=== PATIENT | female | born 1960 | race Caucasian/White ===

== ENCOUNTER 2024-03-07 10:06 | Inpatient (IN) ==
[2024-03-07] MEDS: KETOROLAC 15 MG/ML VIAL IM ONE (10:30)
[2024-03-07] MEDS: METHOCARBAMOL 750 MG TABLET PO ONE (10:31)
[2024-03-07] MEDS: HYDROcodone/APAP 5/325MG TABLET PO ONE (11:42)
[2024-03-07 13:34] LABS: Basophils # (Auto) 0.06 K/mcL (0.00-0.30); Eosinophils # (Auto) 0.26 K/mcL (0.00-0.70); Eosinophils % (Auto) 4.2 % (0.0-7.0); Hematocrit 38.5 % (34.1-44.9); Hemoglobin 12.9 g/dL (11.2-15.7); Lymphocytes # (Auto) 1.56 K/mcL (1.50-4.80); Lymphocytes % (Auto) 25.2 % (15.5-49.0); Mean Cell Volume 97.2 fL (80.0-100.0); Mean Corpuscular HGB Conc 33.5 g/dL (31.0-36.0); Mean Platelet Volume 10.3 fL (8.8-12.5); Monocytes # (Auto) 0.69 K/mcL (0.10-0.90); Monocytes % (Auto) 11.1 % (1.0-12.0); Neutrophils % (Auto) 58.5 % (38.0-78.0); Platelet Count 104 K/mcL (140-440); RBC 3.96 M/mcL (3.59-5.38); Red Cell Distribution Width 12.8 % (11.5-14.5); WBC 6.2 K/mcL (4.5-11.0)
[2024-03-07 13:59] LABS: ALT/SGPT 15 U/L (<40); AST/SGOT 38 U/L (<32); Albumin 3.3 gm/dL (3.2-5.2); Albumin/Globulin Ratio 1.4 (1.0-2.3); Alkaline Phosphatase 128 U/L (39-117); Bilirubin,Total 1.6 mg/dL (0.1-1.0); Blood Urea Nitrogen 11 mg/dL (8-23); Calcium 9.2 mg/dL (8.6-10.4); Carbon Dioxide 21 mmol/L (22-30); Chloride 108 mmol/L (96-108); Globulin 2.3 gm/dL (2.2-3.7); Glomerular Filtration Rate 96; Glucose 82 mg/dL (70-105); Potassium 4.4 mmol/L (3.3-5.1); Sodium 139 mmol/L (133-145)
[2024-03-07 14:14] LABS: Erythrocyte Sedimentation Rate 5 mm/hr (0-30)
[2024-03-07] MEDS: DEXAMETHASONE 10 MG/ML VIAL IV ONE (14:40)
[2024-03-07] MEDS: RIFAXIMIN 550 MG TABLET PO ONE (18:56)
[2024-03-07] MEDS: LACTULOSE 20 GM/30 ML ORAL.SOL PO ONE (18:56)
[2024-03-07] MEDS ORDERED: IPRATROPIUM/ALBUTEROL 3 ML AMPUL.NEB NEB PRN (21:45)
[2024-03-07] MEDS ORDERED: MAG HYDROX/AL HYDROX/SIMETH 30 ML ORAL.SUSP PO PRN (21:45)
[2024-03-07] MEDS ORDERED: PROMETHAZINE 25 MG TABLET PO PRN (21:45)
[2024-03-07] MEDS: 0.9 % SODIUM CHLORIDE 10 ML SYRINGE IV SCH (22:06)
[2024-03-07] MEDS: SENNOSIDES 1 TABLET PO SCH (22:17)
[2024-03-07] MEDS: HEPARIN 5,000 UNIT/ML VIAL SQ SCH (22:19)
[2024-03-08 06:24] LABS: ALT/SGPT 14 U/L (<40); AST/SGOT 35 U/L (<32); Albumin 3.3 gm/dL (3.2-5.2); Albumin/Globulin Ratio 1.4 (1.0-2.3); Alkaline Phosphatase 122 U/L (39-117); Basophils # (Auto) 0 K/mcL (0.00-0.30); Basophils % (Auto) 0 % (0.0-2.0); Bilirubin,Total 1.3 mg/dL (0.1-1.0); Blood Urea Nitrogen 20 mg/dL (8-23); Calcium 9.5 mg/dL (8.6-10.4); Carbon Dioxide 20 mmol/L (22-30); Chloride 107 mmol/L (96-108); Eosinophils # (Auto) 0 K/mcL (0.00-0.70); Eosinophils % (Auto) 0 % (0.0-7.0); Globulin 2.3 gm/dL (2.2-3.7); Glomerular Filtration Rate 78; Glucose 126 mg/dL (70-105); Hematocrit 37.1 % (34.1-44.9); Hemoglobin 12.6 g/dL (11.2-15.7); Lymphocytes # (Auto) 0.86 K/mcL (1.50-4.80); Lymphocytes % (Auto) 17.4 % (15.5-49.0); Mean Cell Volume 96.4 fL (80.0-100.0); Mean Platelet Volume 10.5 fL (8.8-12.5); Monocytes # (Auto) 0.17 K/mcL (0.10-0.90); Monocytes % (Auto) 3.4 % (1.0-12.0); Platelet Count 92 K/mcL (140-440); Potassium 4.5 mmol/L (3.3-5.1); RBC 3.85 M/mcL (3.59-5.38); Red Cell Distribution Width 12.4 % (11.5-14.5); Sodium 136 mmol/L (133-145); WBC 4.9 K/mcL (4.5-11.0)
[2024-03-08] MEDS: PANTOPRAZOLE 40 MG TABLET PO SCH (09:45)
[2024-03-08] MEDS: HYDROmorphone 1 MG/ML SYRINGE IV PRN (11:24)
[2024-03-08] MEDS: fentaNYL 25 MCG PATCH TOPICAL SCH (13:52)
[2024-03-08] MEDS: LACTULOSE 20 GM/30 ML ORAL.SOL PO PRN (13:52)
[2024-03-08] MEDS: rOPINIRole 1 MG TABLET PO SCH ×2 (20:08→20:54)
[2024-03-08] MEDS: RIFAXIMIN 550 MG TABLET PO SCH (20:09)
[2024-03-08] MEDS: MIRTAZAPINE 15 MG TABLET PO SCH (20:09)
[2024-03-08] MEDS: FUROSEMIDE 40 MG TABLET PO SCH (20:10)
[2024-03-08] MEDS: MELATONIN 3 MG TABLET PO SCH (20:10)
[2024-03-08] MEDS: KETOROLAC 10 MG TABLET PO PRN (20:41)
[2024-03-09] MEDS: MAGNESIUM HYDROXIDE 30 ML ORAL.SUSP PO PRN (05:18)
[2024-03-09 06:30] LABS: Basophils # (Auto) 0.01 K/mcL (0.00-0.30); Basophils % (Auto) 0.1 % (0.0-2.0); Eosinophils # (Auto) 0.08 K/mcL (0.00-0.70); Eosinophils % (Auto) 0.7 % (0.0-7.0); Hematocrit 37.1 % (34.1-44.9); Hemoglobin 12.8 g/dL (11.2-15.7); Lymphocytes # (Auto) 1.46 K/mcL (1.50-4.80); Lymphocytes % (Auto) 12.7 % (15.5-49.0); Mean Cell Volume 97.6 fL (80.0-100.0); Mean Corpuscular HGB Conc 34.5 g/dL (31.0-36.0); Mean Platelet Volume 11.1 fL (8.8-12.5); Monocytes # (Auto) 1.22 K/mcL (0.10-0.90); Monocytes % (Auto) 10.6 % (1.0-12.0); Neutrophils % (Auto) 75.6 % (38.0-78.0); Platelet Count 108 K/mcL (140-440); Red Cell Distribution Width 12.7 % (11.5-14.5); WBC 11.5 K/mcL (4.5-11.0)
[2024-03-09 06:47] LABS: ALT/SGPT 25 U/L (<40); AST/SGOT 65 U/L (<32); Albumin 3.3 gm/dL (3.2-5.2); Albumin/Globulin Ratio 1.3 (1.0-2.3); Alkaline Phosphatase 127 U/L (39-117); Bilirubin,Total 1.5 mg/dL (0.1-1.0); Blood Urea Nitrogen 33 mg/dL (8-23); Calcium 9.2 mg/dL (8.6-10.4); Carbon Dioxide 21 mmol/L (22-30); Chloride 105 mmol/L (96-108); Globulin 2.6 gm/dL (2.2-3.7); Glomerular Filtration Rate 68; Glucose 99 mg/dL (70-105); Potassium 4.8 mmol/L (3.3-5.1); Sodium 135 mmol/L (133-145)
[2024-03-09] MEDS ORDERED: VIT C S CHERRY CELERY GRAPE SD PO SCH (09:00)
[2024-03-09] MEDS: FOLIC ACID 1 MG TABLET PO SCH (09:50)
[2024-03-09] MEDS: FUROSEMIDE 40 MG TABLET PO SCH (09:51)
[2024-03-09] MEDS: SPIRONOLACTONE 25 MG TABLET PO SCH (09:51)
[2024-03-09] MEDS ORDERED: BUPIVACAINE PF 0.25% 10 ML VIAL IJ ONE (10:00)
[2024-03-09] MEDS ORDERED: DEXAMETHASONE 10 MG/ML VIAL ONE (10:00)
[2024-03-09] MEDS: HYDROcodone/APAP 10/325MG TABLET PO PRN (12:11)
[2024-03-10 06:17] LABS: Basophils # (Auto) 0 K/mcL (0.00-0.30); Basophils % (Auto) 0 % (0.0-2.0); Eosinophils # (Auto) 0 K/mcL (0.00-0.70); Eosinophils % (Auto) 0 % (0.0-7.0); Hematocrit 38.7 % (34.1-44.9); Hemoglobin 13.1 g/dL (11.2-15.7); Lymphocytes # (Auto) 1.06 K/mcL (1.50-4.80); Lymphocytes % (Auto) 12.7 % (15.5-49.0); Mean Cell Volume 98.2 fL (80.0-100.0); Mean Corpuscular HGB Conc 33.9 g/dL (31.0-36.0); Monocytes # (Auto) 0.51 K/mcL (0.10-0.90); Monocytes % (Auto) 6.1 % (1.0-12.0); Neutrophils % (Auto) 80.7 % (38.0-78.0); Platelet Count 101 K/mcL (140-440); RBC 3.94 M/mcL (3.59-5.38); Red Cell Distribution Width 12.4 % (11.5-14.5); WBC 8.3 K/mcL (4.5-11.0)
[2024-03-10 06:33] LABS: ALT/SGPT 51 U/L (<40); AST/SGOT 104 U/L (<32); Albumin 3.3 gm/dL (3.2-5.2); Albumin/Globulin Ratio 1.2 (1.0-2.3); Alkaline Phosphatase 141 U/L (39-117); Bilirubin,Total 1.1 mg/dL (0.1-1.0); Blood Urea Nitrogen 30 mg/dL (8-23); Carbon Dioxide 22 mmol/L (22-30); Chloride 106 mmol/L (96-108); Globulin 2.8 gm/dL (2.2-3.7); Glomerular Filtration Rate 92; Glucose 131 mg/dL (70-105); Potassium 4.2 mmol/L (3.3-5.1); Sodium 139 mmol/L (133-145)
[2024-03-11] MEDS: ALPRAZolam 0.5 MG TABLET PO PRN (04:54)
[2024-03-11 06:13] LABS: Basophils # (Auto) 0.01 K/mcL (0.00-0.30); Basophils % (Auto) 0.1 % (0.0-2.0); Eosinophils # (Auto) 0.02 K/mcL (0.00-0.70); Eosinophils % (Auto) 0.2 % (0.0-7.0); Hematocrit 35.4 % (34.1-44.9); Hemoglobin 12.1 g/dL (11.2-15.7); Lymphocytes # (Auto) 1.45 K/mcL (1.50-4.80); Lymphocytes % (Auto) 14.3 % (15.5-49.0); Mean Cell Volume 98.1 fL (80.0-100.0); Mean Corpuscular HGB Conc 34.2 g/dL (31.0-36.0); Mean Platelet Volume 11.6 fL (8.8-12.5); Monocytes # (Auto) 1.52 K/mcL (0.10-0.90); Neutrophils % (Auto) 69.7 % (38.0-78.0); Platelet Count 92 K/mcL (140-440); RBC 3.61 M/mcL (3.59-5.38); Red Cell Distribution Width 12.6 % (11.5-14.5); WBC 10.2 K/mcL (4.5-11.0)
[2024-03-11 06:25] LABS: ALT/SGPT 47 U/L (<40); AST/SGOT 79 U/L (<32); Albumin/Globulin Ratio 1.2 (1.0-2.3); Alkaline Phosphatase 127 U/L (39-117); Blood Urea Nitrogen 24 mg/dL (8-23); Calcium 8.5 mg/dL (8.6-10.4); Carbon Dioxide 26 mmol/L (22-30); Chloride 103 mmol/L (96-108); Globulin 2.5 gm/dL (2.2-3.7); Glomerular Filtration Rate 96; Glucose 101 mg/dL (70-105); Potassium 3.8 mmol/L (3.3-5.1); Sodium 137 mmol/L (133-145)
[2024-03-12] MEDS: ONDANSETRON 4 MG/2 ML VIAL IV PRN (02:28)
[2024-03-12 06:15] LABS: ALT/SGPT 40 U/L (<40); AST/SGOT 60 U/L (<32); Albumin 2.9 gm/dL (3.2-5.2); Albumin/Globulin Ratio 1.3 (1.0-2.3); Alkaline Phosphatase 126 U/L (39-117); Bilirubin,Direct 0.6 mg/dL (<0.3); Bilirubin,Total 1.4 mg/dL (0.1-1.0); Blood Urea Nitrogen 21 mg/dL (8-23); Calcium 8.4 mg/dL (8.6-10.4); Carbon Dioxide 28 mmol/L (22-30); Chloride 101 mmol/L (96-108); Globulin 2.3 gm/dL (2.2-3.7); Glomerular Filtration Rate 96; Glucose 99 mg/dL (70-105); Lactate Dehydrogenase 242 U/L (135-225); Phosphorous 2.3 mg/dL (2.5-4.5); Potassium 3.8 mmol/L (3.3-5.1); Sodium 137 mmol/L (133-145); Triglycerides 36 mg/dL (<150); Uric Acid 3.5 mg/dL (2.5-8.0)
[2024-03-12 06:25] LABS: Basophils # (Auto) 0.01 K/mcL (0.00-0.30); Basophils % (Auto) 0.1 % (0.0-2.0); Eosinophils % (Auto) 2.5 % (0.0-7.0); Hematocrit 37.3 % (34.1-44.9); Hemoglobin 12.7 g/dL (11.2-15.7); Lymphocytes # (Auto) 1.79 K/mcL (1.50-4.80); Lymphocytes % (Auto) 22.1 % (15.5-49.0); Mean Cell Volume 99.5 fL (80.0-100.0); Mean Platelet Volume 11.4 fL (8.8-12.5); Monocytes # (Auto) 1.32 K/mcL (0.10-0.90); Monocytes % (Auto) 16.3 % (1.0-12.0); Neutrophils % (Auto) 57.9 % (38.0-78.0); Platelet Count 92 K/mcL (140-440); RBC 3.75 M/mcL (3.59-5.38); Red Cell Distribution Width 12.7 % (11.5-14.5); WBC 8.1 K/mcL (4.5-11.0)
[2024-03-12] MEDS: LACTULOSE 20 GM/30 ML ORAL.SOL PO SCH ×2 (09:26→13:08)
[2024-03-12] MEDS: HEPARIN 5,000 UNIT/ML VIAL SQ SCH (10:42)
[2024-03-12] MEDS ORDERED: LACTULOSE 20 GM/30 ML ORAL.SOL PR PRN ×2 (13:02→13:13)
[2024-03-12] MEDS: LACTULOSE 20 GM/30 ML ORAL.SOL PO PRN (16:18)
[2024-03-12] MEDS: LACTULOSE 20 GM/30 ML ORAL.SOL PT SCH (16:55)
[2024-03-13] MEDS: ACETAMINOPHEN 650 MG/65 ML BAG IV PRN (07:27)
[2024-03-13] MEDS ORDERED: MAG HYDROX/AL HYDROX/SIMETH 30 ML ORAL.SUSP PO PRN (08:35)
[2024-03-13] MEDS ORDERED: MAGNESIUM HYDROXIDE 30 ML ORAL.SUSP PO PRN (08:35)
[2024-03-13] MEDS ORDERED: SPIRONOLACTONE 25 MG TABLET PO SCH (09:00)
[2024-03-13] MEDS ORDERED: FUROSEMIDE 40 MG TABLET PO SCH (09:00)
[2024-03-13] MEDS ORDERED: LACTULOSE 20 GM/30 ML ORAL.SOL PO SCH (09:00)
[2024-03-13] MEDS ORDERED: fentaNYL 25 MCG PATCH TOPICAL SCH (09:00)
[2024-03-13 09:06] LABS: ALT/SGPT 39 U/L (<40); AST/SGOT 53 U/L (<32); Albumin 2.9 gm/dL (3.2-5.2); Albumin/Globulin Ratio 1.4 (1.0-2.3); Alkaline Phosphatase 144 U/L (39-117); Bilirubin,Direct 1.1 mg/dL (<0.3); Bilirubin,Total 2.3 mg/dL (0.1-1.0); Blood Urea Nitrogen 19 mg/dL (8-23); Calcium 8.3 mg/dL (8.6-10.4); Carbon Dioxide 27 mmol/L (22-30); Chloride 111 mmol/L (96-108); Globulin 2.1 gm/dL (2.2-3.7); Glomerular Filtration Rate 92; Glucose 92 mg/dL (70-105); Lactate Dehydrogenase 219 U/L (135-225); Phosphorous 3.3 mg/dL (2.5-4.5); Potassium 3.4 mmol/L (3.3-5.1); Sodium 147 mmol/L (133-145); Triglycerides 34 mg/dL (<150); Uric Acid 4.4 mg/dL (2.5-8.0)
[2024-03-13] MEDS: RIFAXIMIN 550 MG TABLET PO SCH (09:28)
[2024-03-13] MEDS: rOPINIRole 1 MG TABLET PO SCH (09:28)
[2024-03-13] MEDS: FOLIC ACID 1 MG TABLET PO SCH (09:28)
[2024-03-13] MEDS: SPIRONOLACTONE 25 MG TABLET PO SCH (09:28)
[2024-03-13] MEDS: FUROSEMIDE 40 MG TABLET PO SCH (09:29)
[2024-03-13] MEDS: DEXTROSE 5%-1/2NS W/10MEQ KCL 1,000 ML IV SCH (09:29)
[2024-03-13] MEDS: LACTULOSE 20 GM/30 ML ORAL.SOL PO SCH (09:39)
[2024-03-13 09:43] LABS: Appearance,Urine Slightly Cloudy (Clear); Bacteria,Urine Many /hpf (0); Bilirubin,Urine Small mg/dL (Negative); Color,Urine Yellow; Culture Indicated,Urine Yes; Glucose,Urine (UA) Negative (Negative); Ketones,Urine Negative (Negative); Leukocyte Esterase,Urine Small /uL (Negative); Mucus,Urine Few /hpf; Nitrate,Urine Positive (Negative); Protein,Urine Trace mg/dL (Negative); Specific Gravity,Urine 1.015 (1.000-1.035); Urine Blood Small ery/mcL (Negative); Urine RBC 0 /hpf (0-3); Urine Squamous Epithelial Cell 2 /hpf (0-4); Urine WBC 5 /hpf (0-4)
[2024-03-13] MEDS: DEXTROSE 5% IN WATER 500 ML IV ONE ×2 (10:17→10:28)
[2024-03-13] MEDS: cefTRIAXone 2 GM in DEXTROSE 5% IN WATER 50 ML IV SCH (10:59)
[2024-03-13 11:32] LABS: Mean Cell Volume 98.2 fL (80.0-100.0); Mean Corpuscular HGB Conc 33.3 g/dL (31.0-36.0); Mean Platelet Volume 11.1 fL (8.8-12.5); Platelet Count 98 K/mcL (140-440); RBC 3.97 M/mcL (3.59-5.38); Red Cell Distribution Width 13.3 % (11.5-14.5); WBC 6.8 K/mcL (4.5-11.0)
[2024-03-13] MEDS: HYDROcodone/APAP 10/325MG TABLET PO PRN (12:07)
[2024-03-13] MEDS: METHOCARBAMOL 1,000 MG/10 ML VIAL IV PRN (13:41)
[2024-03-13 14:07] LABS: Band Neutrophils % 3 % (0-10); Eosinophils % (Manual) 1 % (0-7); Lymphocytes % 29 % (15-49); Monocytes % (Manual) 13 % (1-12); Platelet Estimate NORMAL (Normal); RBC Morphology NORMAL (Normal); Segmented Neutrophils % 54 % (38-78)
[2024-03-14 06:20] LABS: ALT/SGPT 25 U/L (<40); AST/SGOT 43 U/L (<32); Albumin 2.8 gm/dL (3.2-5.2); Albumin/Globulin Ratio 1.1 (1.0-2.3); Alkaline Phosphatase 135 U/L (39-117); Bilirubin,Direct 0.8 mg/dL (<0.3); Bilirubin,Total 1.7 mg/dL (0.1-1.0); Blood Urea Nitrogen 18 mg/dL (8-23); Calcium 8.4 mg/dL (8.6-10.4); Carbon Dioxide 26 mmol/L (22-30); Chloride 110 mmol/L (96-108); Globulin 2.6 gm/dL (2.2-3.7); Glomerular Filtration Rate 96; Glucose 93 mg/dL (70-105); Lactate Dehydrogenase 287 U/L (135-225); Phosphorous 3.3 mg/dL (2.5-4.5); Potassium 3.1 mmol/L (3.3-5.1); Sodium 146 mmol/L (133-145); Triglycerides 36 mg/dL (<150); Uric Acid 4.7 mg/dL (2.5-8.0)
[2024-03-14] MEDS: PANTOPRAZOLE 40 MG PACKET PT SCH (07:33)
[2024-03-14] MEDS: PANTOPRAZOLE 40 MG TABLET PO SCH (07:33)
[2024-03-14] MEDS ORDERED: diphenhydrAMINE 25 MG CAPSULE PO PRN (07:43)
[2024-03-14] MEDS: cefTRIAXone 1 GM VIAL IV SCH (08:15)
[2024-03-14] MEDS: DEXTROSE 5% IN WATER 500 ML IV ONE (08:17)
[2024-03-14] MEDS: POTASSIUM CHLORIDE 20 MEQ TABLET PO ONE ×2 (17:30→18:41)
[2024-03-14] MEDS: POTASSIUM CHLORIDE 20 MEQ TABLET PO SCH (19:14)
[2024-03-14] MEDS: QUEtiapine 25 MG TABLET PO SCH (20:35)
[2024-03-15 06:48] LABS: ALT/SGPT 19 U/L (<40); AST/SGOT 35 U/L (<32); Albumin 2.9 gm/dL (3.2-5.2); Albumin/Globulin Ratio 1.2 (1.0-2.3); Alkaline Phosphatase 130 U/L (39-117); Bilirubin,Direct 0.7 mg/dL (<0.3); Bilirubin,Total 1.7 mg/dL (0.1-1.0); Blood Urea Nitrogen 13 mg/dL (8-23); Calcium 8.5 mg/dL (8.6-10.4); Carbon Dioxide 25 mmol/L (22-30); Chloride 105 mmol/L (96-108); Globulin 2.5 gm/dL (2.2-3.7); Glomerular Filtration Rate 102; Glucose 97 mg/dL (70-105); Lactate Dehydrogenase 218 U/L (135-225); Phosphorous 2.3 mg/dL (2.5-4.5); Potassium 3.6 mmol/L (3.3-5.1); Sodium 139 mmol/L (133-145); Triglycerides 48 mg/dL (<150); Uric Acid 3.3 mg/dL (2.5-8.0)
[2024-03-15] MEDS: AMPICILLIN SODIUM 1 GM in 0.9 % SODIUM CHLORIDE 50 ML IV SCH (14:20)
== END 2024-03-16 13:10 | DRG 543 ==
LOC: ED 10:06 → MEDSUR 21:44 → ICU 03-13 16:42 → MEDSUR 03-15 23:15
PROVIDERS: ADMIT Student in an Organized Health Care Education/Training Program; ATTEND Internal Medicine